=== PATIENT | female | born 1950 | race Caucasian/White ===

== ENCOUNTER → 2018-01-08 | Outpatient (CLI) | payer MEDICARE ==
[2017-08-27 09:41] VITALS: BMI 26.9
[~2018-01-08] MED LIST: ACE325 PO; ATEN-1 PO; BIS10S PR; DEN60I SUBQ; ENO40I SQ; FLUO-202 PO; FLUO40CA67 PO; HYD200 PO; IBUP600T22 PO; LEVO-85 PO; LISI5TAB25 PO; LOR7.5/325 PO; METR-160 PO; MOM PO; PRAV20TA65 PO; PRE5 PO; SIMV-44 PO
== END ==
LOC: LAB 11:52
PROVIDERS: ATTEND Nurse Practitioner
DX: L82.1 Other seborrheic keratosis (principal); L21.9 Seborrheic dermatitis, unspecified
CPT/HCPCS: 88305

== ENCOUNTER → 2018-10-14 | Outpatient (CLI) | payer MEDICARE ==
[2017-08-27 09:41] VITALS: BMI 26.9
[~2018-10-14] MED LIST changes: +DENOSUMAB 60 MG/1 ML SYR SUBQ ONE; -METR-160 PO; +METR500T54 PO
== END ==
LOC: SPU 07:49
PROVIDERS: ATTEND Family Medicine
DX: M81.0 Age-related osteoporosis without current pathological fracture (principal)
CPT/HCPCS: 96372; J0897

== ENCOUNTER → 2019-04-12 | Outpatient (CLI) | payer MEDICARE ==
[2017-08-27 09:41] VITALS: BMI 26.9
[~2019-04-12] MED LIST changes: +METR500T15 PO; -METR500T54 PO
[2019-04-12 11:14] VITALS: BP 135/80
== END ==
LOC: SPU 09:18
PROVIDERS: ATTEND Family Medicine
DX: M81.0 Age-related osteoporosis without current pathological fracture (principal)
CPT/HCPCS: 96372; J0897